=== PATIENT | female | born 1990 | race Caucasian/White ===

== ENCOUNTER 2023-04-17 10:23 | Emergency (ER) | payer OTHER, MEDICAID, SELFPAY ==
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
[2023-04-17 10:27] VITALS: BP 128/78; PULSE 96; RESP 17; TEMP 36.6; O2SAT 99; BMI 17.3
--- NOTE | 2023-04-17 11:05 | ED.WOUNDLAC ---
HPI - Wound/Laceration General Chief Complaint: Wound/Laceration Stated Complaint: cut on forehead Time Seen by Provider: 04/17/23 11:03 Source: patient, RN notes reviewed and old records reviewed Mode of arrival: ambulatory History of Present Illness HPI narrative: 33-year-old female with no significant past medical history presenting to the ED complaining of laceration to right forehead, headache, neck pain and lightheadedness/dizziness S/P car trunk door closing on head [employer]. Admits to +LOC after instant, did not fall all the way to ground was guided by . Denies nausea/vomiting, vision loss, injury to other area, weakness. Denies taking anticoagulation, tetanus unknown Related Data Allergies Allergy/AdvReac Type Severity Reaction Status Date / Time latex [Latex] Allergy Mild RASH Verified 04/17/23 10:25 latex Allergy Unknown swollen Uncoded 04/17/23 10:25 eyes Review of Systems Review of Systems: Constitutional: No Fever, No Chills, No Fatigue, No Malaise ENT/Mouth: No Ear Pain, No Nasal Congestion, No sore throat, No Rhinorrhea, No Swallowing Difficulty Eyes: No Eye Pain, No Swelling, No Redness, No Vision Changes Cardiovascular: No Chest Pain, No SOB, No Edema, No Palpitations Respiratory: No Cough, No Sputum, No Dyspnea Gastrointestinal: No Nausea, No Vomiting, No Diarrhea, No Constipation, No Abdominal pain Musculoskeletal: No joint pain, No Myalgias, No Joint Swelling Skin: + Skin Lesions, No rash Neuro: No Weakness, No Numbness, No Paresthesias, No Loss of Consciousness, +lightheaded/ Dizziness, + Headache Yes all other systems are reviewed and are negative Constitutional: Constitutional: Reports as per HPI Neurologic: Denies Abnormal speech present [facility] Past Medical History Attestation statement: The following information was validated with the patient. Source: old records reviewed Social History Social History Advance Directives: No Advance Directives Information Provided: No Physical Exam Vital Signs: Vital Signs: Last Vital Signs Temp 98 F 04/17/23 10:27 Pulse 96 04/17/23 10:27 Resp 17 04/17/23 10:27 BP 128/78 04/17/23 10:27 Pulse Ox 99 08/03/23 10:27 O2 Del Method Room Air 04/17/23 10:27 BMI result Body Mass Index 17.3 Const: General: cooperative, healthy appearing, no acute distress, alert and awake Orientation/consciousness: patient oriented x3 Limitations: no limitations HEENT: Other: + 3 cm linear laceration noted to right forehead. Bleeding controlled. No surrounding erythema, fluctuance or induration. No palpable step-off Head: Yes normal to inspection, No Jason's sign and No raccoon eyes Ears: hearing grossly normal bilaterally General nose exam: Normal external nose present Face and sinus: Yes normal facial exam Mouth: Normal oral and palatal mucosa present Eyes: General: appearance normal, both eyes and all related structures Pupils: Equal, round and reactive pupils present EOM: EOMs intact bilaterally Neck: Other: no midline cervical spinous, +right sided paraspinal ttp Neck: Yes normal visual inspection and Yes no meningeal signs Resp: Effort & Inspection: normal respiratory effort and no respiratory distress Auscultation: clear to auscultation bilaterally Cardio: Rate: regular rate Heart sounds: S1 normal heart sound present and S2 normal heart sound present GI: Inspection: Yes normal to inspection Palpation (GI): Soft to palpation, nontender, no guarding and not rigid : General: Yes no CVA tenderness Back/Spine/Pelvis: Other: No midline cervical/thoracic/lumbar spinous tenderness/step-off or deformity Back: no CVA tenderness Skin: Rashes: no rashes Wounds: no wounds Neuro: General: patient oriented x3, gait normal, tone normal, moves all extremities, no meningeal signs, no focal motor deficits and CN's II-XI intact bilaterally Cranial nerves: Yes CN's II-XII intact bilaterally, Yes Equal, round and reactive pupils present and Yes Bilaterally intact EOM present Cognition (Neuro): normal cognition Speech: No Abnormal speech present Gait exam (Neuro): Normal gait present Motor exam (neuro): 5/5 motor strength present throughout Extrem: General: Yes normal to inspection Course Course Course Narrative: CT head/brain wo IV con IMPRESSION: No acute intracranial pathology. CT cervical spine wo IV con IMPRESSION: No acute cervical spine fracture identified.? ? Cervical spondylosis C6-7 as described. ? Fleischner guidelines were followed. Results discussed with patient including worrisome signs and symptoms and strict return precautions, and when to return to the emergency department. They verbalized understanding and feel safe for discharge at this time. Medications Administered Discontinued Medications Generic Name Dose Route Start Last Admin Trade Name Kristian PRN Reason Stop Dose Admin Acetaminophen 650 mg 04/17/23 11:54 04/17/23 11:59 Acetaminophen 325 Mg Tablet PO 04/17/23 11:55 650 mg ONCE ONE Administration Diphtheria/Tetanus/Acell Pertussis 0.5 ml 04/17/23 11:10 04/17/23 11:18 Diphth,Pertus(Acell),Tet Adult 0.5 Ml Syringe IM 04/17/23 11:11 0.5 ml .ONCE ONE Administration Lidocaine HCl 5 ml 04/17/23 11:04 04/17/23 11:18 Lidocaine Hcl 1 % Mpf 5 Ml Vial SUBCUT 04/17/23 11:05 5 ml ONCE ONE Administration Medical Decision Making Medical Decision Making [facility] Narrative: 33-year-old female with no significant past medical history presenting to the ED complaining of laceration to right forehead, headache, neck pain and lightheadedness/dizziness S/P car trunk door closing on head [employer]. On exam vital signs stable, NAD, nontoxic appearing, 3 cm laceration noted to right forehead. No focal neuro deficits, ambulating with steady gait. Concern for laceration vs concussion. Rule out ICH/fractures. No evidence of infection. Plan: Head/C-spine CT, repair wound, update tetanus Please refer to course for remaining clinical decision making, interpretation of labs/imaging results, and discussions with consultants and/or family members. Differential Diagnosis Differential Diagnoses: The differential diagnosis associated with the presentation includes As above Admission/Observation Consideration of admission/observation: Escalation of care including admission/observation considered Lab Data [facility] Lab Attestation statement: I reviewed the patient's lab results. Radiology Impression Discussion of test interpretation with radiology: I have reviewed the radiologist's reading. External Record Review External record reviewed: Inpatient record, Office record, Outpatient record, Prior outpatient labs, Prior outpatient radiology, Primary care record and Outside ED record Tests considered The following testing was considered but not selected: As above Procedures Laceration Laceration 1: Site: face Side (If applicable): right Size (cm): 3 Description: linear Depth: simple, single layer Local Anesthetic: lidocaine 1% Amount of anesthesia used (mL): 4 Pre-repair: wound explored and irrigated extensively Skin layer closed with: nylon Size (cm): 6-0 Number of sutures: 5 Technique: simple, interrupted Discharge Plan Discharge Clinical Impression: Laceration, Head injury Patient Disposition: Home, Self-Care Instructions: Facial Laceration (ED) Additional Instructions: Her CT scans do not show any acute fractures or bleed Practice brain rest Take Tylenol and Motrin as needed Avoid bright lights, excessive screen time. If you have constant or worsening/persistent headache return to the ED Your wounds were repaired today in the emergency department. Keep dry and clean. You need to return to any emergency department, urgent care, or your PCPs office in 7-10 days for suture removal Apply bacitracin and or Neosporin daily Once sutures are removed apply anti scar cream like Mederma If area begins look infected, is red, there is drainage, streaking, or you have fever please return to the emergency department Referrals: Laura Connor MD [Primary Care Provider] - 5 days Interventions: ED Discharge Assessment Last Done: 04/17/23 15:12 Discharge Date/Time: 04/17/23 15:14
[2023-04-17] MEDS: Diphth,Pertus(ACell),Tet Adult 0.5 ML SYRINGE IM (11:18)
[2023-04-17] MEDS: Lidocaine HCl 1 % MPF 5 ML VIAL SUBCUT (11:18)
[2023-04-17] MEDS: Acetaminophen 325 MG TABLET 650 MG PO (11:59)
== END 2023-04-17 15:14 | disposition home or self-care (01) ==
PROVIDERS: Emergency Provider Student in an Organized Health Care Education/Training Program; PCP Internal Medicine
DX: S01.81XA Laceration without foreign body of other part of head, initial encounter (principal); S00.81XA Abrasion of other part of head, initial encounter; R51.9 Headache, unspecified; M54.2 Cervicalgia; W26.9XXA Contact with unspecified sharp object(s), initial encounter; Y93.9 Activity, unspecified; Y92.9 Unspecified place or not applicable; Y99.9 Unspecified external cause status; Z23 Encounter for immunization; Z79.899 Other long term (current) drug therapy
CPT/HCPCS: 12013; 70450; 72125; 90471; 90715; 99283; 99284

== ENCOUNTER 2023-06-20 12:18 | Outpatient (REF) | payer OTHER, SELFPAY | END 2023-06-20 12:19 | disposition home or self-care (01) | LOC: HO.HHCL 12:18 | PROVIDERS: Visit Provider Internal Medicine | DX: Z11.1 Encounter for screening for respiratory tuberculosis (principal); R63.6 Underweight; F32.A Depression, unspecified | CPT/HCPCS: 36415; 80053; 80061; 82306; 84443; 86481; 86704; 86706; 86709; 86803; 87340; 87389 ==

== ENCOUNTER 2023-09-24 13:56 | Outpatient (REF) | payer OTHER, SELFPAY ==
[2023-09-27 08:39] LABS: C. trachomatis RNA TMA NOT DETECTED (NOT DETECTED); N. gonorrhoeae RNA TMA NOT DETECTED (NOT DETECTED)
[2023-09-27 09:29] LABS: HPV mRNA E6/E7 rflx Not Detected (Not Detected)
[2023-09-27 09:59] LABS: Trichomonas (NAAT) NOT DETECTED (NOT DETECTED)
== END 2023-09-24 13:57 | disposition home or self-care (01) ==
LOC: HO.HHCLNP 13:56
PROVIDERS: Visit Provider Advanced Practice Midwife
DX: Z01.419 Encounter for gynecological examination (general) (routine) without abnormal findings (principal); Z20.2 Contact with and (suspected) exposure to infections with a predominantly sexual mode of transmission
CPT/HCPCS: 36415; 87491; 87591; 87624; 87661; 88142

== ENCOUNTER 2024-02-25 17:06 | Emergency (ER) | payer OTHER, SELFPAY ==
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
[2024-02-25 18:35] VITALS: BP 112/73; PULSE 84; RESP 16; TEMP 36.6; O2SAT 100; BMI 15.7
[2024-02-25 23:17] VITALS: BP 113/56; PULSE 70; RESP 16; TEMP 37.2; O2SAT 97
== END 2024-02-26 01:34 | disposition home or self-care (01) ==
PROVIDERS: Emergency Provider Internal Medicine; PCP Internal Medicine
DX: M54.50 Low back pain, unspecified (principal); M79.604 Pain in right leg; Z04.1 Encounter for examination and observation following transport accident
CPT/HCPCS: 72100; 73590; 99283

== ENCOUNTER 2024-05-04 12:36 | Outpatient (REF) | payer OTHER, SELFPAY ==
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
== END 2024-05-04 12:37 | disposition home or self-care (01) ==
LOC: HO.HHCX 12:36
PROVIDERS: Visit Provider Family Medicine
DX: M54.2 Cervicalgia (principal); M54.6 Pain in thoracic spine
CPT/HCPCS: 72040; 72070

== ENCOUNTER 2024-11-04 15:08 | Emergency (ER) | payer OTHER, SELFPAY ==
--- NOTE | ~2024-11-04 | XR_ITS ---
CLINICAL HISTORY: shortness of breath Chest Radiographs, 2 views Comparison: CR - CHEST 1 VIEW - 10/08/17 10:13 EST CR/MD - CHEST 2 VIEWS - 10/08/17 09:19 EST Findings: No cardiomegaly. Normal mediastinal contours. No pneumothorax. Prominent nipple shadows on the PA view. Artifact in the right suprahilar region on the PA view secondary to a hair tie. No pleural effusion. Normal upper abdomen. No acute fracture. Impression: No acute findings. This document has been electronically signed by: Nette Ramírez MD on 11/04/2024 16:48:47
[2024-11-04 15:50] VITALS: BP 128/76; PULSE 100; RESP 18; TEMP 37; O2SAT 99; BMI 14.3
--- NOTE | 2024-11-04 16:00 | ED_ITS ---
HPI - Asthma General Chief Complaint: Asthma Stated Complaint: asthma,sob,congested cough Time Seen by Provider: 11/05/24 01:06 Source: patient Mode of arrival: ambulatory Limitations: no limitations History of Present Illness ED Provider: Dr. Davonte Antonio HPI Narrative: 34-year-old female with a history of asthma who presents emergency department for evaluation of fever, chills, rhinorrhea, sore throat, cough, nausea, vomiting, diarrhea, abdominal pain x2 days. The patient states she was a cough which is productive of thick, white phlegm. She was also complaining of chest pain with coughing. Patient states she was had 1-2 episodes of vomiting. She was also had several episodes of diarrhea. Patient points to her epigastric area when asked to localize her abdominal pain. Patient states she has been using her albuterol inhaler and it has not been effective in relieving her shortness of breath or her cough. She states she had a fever as high as 102 degrees F at home. Related Data Previous Rx's ?Medication ?Instructions ?Recorded naproxen 500 mg tablet 500 mg PO BID PRN pain 7 days #14 02/26/24 tabs albuterol sulfate 90 mcg/actuation 2 puff inhalation Q4-6H PRN 11/05/24 aerosol inhaler shortness of breath or wheezing #8.5 grams azithromycin 250 mg tablet See Rx Instructions PO .COMPLEX #6 11/05/24 (Zithromax Z-Jignesh) tabs metoclopramide HCl 10 mg tablet 10 mg PO Q6H PRN nausea and 11/05/24 (Reglan) vomiting #14 tabs prednisone 20 mg tablet 60 mg (3 x 20 mg) PO DAILY 5 days 11/05/24 #15 tabs Allergies Allergy/AdvReac Type Severity Reaction Status Date / Time latex [Latex] Allergy Mild RASH Verified 11/04/24 15:53 latex Allergy Unknown swollen Uncoded 11/04/24 15:53 eyes Review of Systems Review of Systems: Yes all other systems are reviewed and are negative [facility] Past Medical History [facility] Narrative: Social history: She denies tobacco, alcohol and drug use Social History Social History Advance Directives: No Do you have a plan to hurt others: No Plan Physical Exam Vital Signs: Vital Signs: Last Vital Signs Temp 98.6 F 11/04/24 22:39 Pulse 116 H 11/04/24 22:39 Resp 16 11/04/24 22:39 BP 130/63 11/04/24 22:39 Pulse Ox 93 11/04/24 22:39 O2 Del Method Room Air 11/04/24 22:39 BMI result Body Mass Index 14.3 Vital signs revealed an elevated blood pressure of 130/63 and an elevated heart rate of 116 otherwise unremarkable. Exam: General: Awake, alert in no distress Head: Normocephalic, atraumatic EENT: PERRL, Lids normal, sclera normal, conjunctiva normal, nose normal , ears normal, throat without erythema or exudates Neck: Supple, no adenopathy Lung: breath sounds symmetric, wheezing at the end of expiration, no rales, no rhonchi Chest: symmetric movement, nontender Heart: regular rate and rhythm, normal S1, S2 no murmurs or rubs Abdomen: soft, mild epigastric tenderness, nondistended, normal bowel sounds Back: no vertebral tenderness, no CVAT Extremities: no deformities, moves all extremities symmetrically Neuro: Awake, alert, oriented, normal speech, cranial nerves intact, moves all extremities symmetrically Psych: Pleasant, cooperative Course Course Course Narrative: This is a rapid medical exam performed by Ada Servin NP: Additional HPI, ROS, PE not included below will be deferred to primary provider. Patient is a 34-year-old female presenting with complaint of shortness of breath since yesterday, feels somewhat better today. Using treatments at home. Plan: viral panel, cxr Medical Decision Making Medical Decision Making MDM Narrative: 34-year-old female with a history of asthma who presents emergency department for evaluation of fever, chills, rhinorrhea, sore throat, cough, nausea, vomiting, diarrhea, abdominal pain x2 days. The patient states she was a cough which is productive of thick, white phlegm. She was also complaining of chest pain with coughing. Patient states she was had 1-2 episodes of vomiting. She was also had several episodes of diarrhea. Patient points to her epigastric area when asked to localize her abdominal pain. Patient states she has been using her albuterol inhaler and it has not been effective in relieving her shortness of breath or her cough. She states she had a fever as high as 102 degrees F at home. Physical examination revealed elevated heart rate and elevated blood pressure otherwise unremarkable. Patient had epigastric tenderness, wheezing at the end of expiration otherwise exam was unremarkable Differential diagnosis: ?Includes but is not limited to pneumonia, bronchitis, asthma exacerbation, COVID-19, influenza, RSV, viral syndrome Course: 01:28 My interpretation patient's laboratory evaluation as follows: COVID-19 influenza and RSV were negative. Chest x-ray revealed no evidence for acute pneumonia. Patient was presentation is consistent with viral syndrome/bronchitis causing asthma exacerbation. I did discuss this with the patient. Patient was given prescriptions for Zithromax Z-Jignesh, prednisone 60 mg once a day for 5 days, changes Reglan 10 mg to every 6-8 hours as needed for nausea and vomiting and an albuterol inhaler 2 puffs every 4-6 hours as needed. She was given her 1st dose of Zithromax and prednisone here in the emergency department. She was given printed and verbal instructions and discharged home. Admission/Observation Consideration of admission/observation: Escalation of care including admission/observation considered (Yes) Lab Data MDM Lab Attestation statement: I reviewed the patient's lab results. Labs: Lab Results 11/04/24 Range/Units 16:05 Influenza Type A (PCR) NEGATIVE (Negative) Influenza Type B (PCR) NEGATIVE (Negative) RSV RNA Qual (PCR) NEGATIVE (Negative) SARS-CoV-2 RNA (RT-PCR) NEGATIVE (Negative) Independent Interpretation I performed an independent interpretation of an: Plain X-Ray Interpretation: My interpretation patient's chest x-ray is as follows: No acute disease Radiology Impression Discussion of test interpretation with radiology: I have reviewed the radiologist's reading. Radiologist Impression: Chest Radiographs, 2 views Comparison: CR - CHEST 1 VIEW - 10/08/17 10:13 EST CR/MN - CHEST 2 VIEWS - 10/08/17 09:19 EST Findings: No cardiomegaly. Normal mediastinal contours. No pneumothorax. Prominent nipple shadows on the PA view. Artifact in the right suprahilar region on the PA view secondary to a hair tie. No pleural effusion. Normal upper abdomen. No acute fracture. Impression: No acute findings. This document has been electronically signed by: Nette Ramírez MD on 11/04/2024 16:48:47 Dictated By: Nette Barajas MD Prescription Management I considered prescription management with: Antibiotic and Other (Anti- inflammatory steroids: Prednisone; antiemetic: Reglan; beta agonist: Albuterol inhaler) Zithromax Chronic Conditions Patient?s care impacted by: Other (Asthma) Discharge Plan Discharge Clinical Impression: Asthma exacerbation Qualifiers: Asthma severity: moderate Asthma persistence: persistent Qualified Code(s): J45.41 - Moderate persistent asthma with (acute) exacerbation Acute bronchitis Qualifiers: Bronchitis organism: unspecified organism Qualified Code(s): J20.9 - Acute bronchitis, unspecified Fever Qualifiers: Fever type: unspecified Qualified Code(s): R50.9 - Fever, unspecified Nausea & vomiting Qualifiers: Vomiting type: unspecified Qualified Code(s): R11.2 - Nausea with vomiting, unspecified Diarrhea Qualifiers: Diarrhea type: unspecified type Qualified Code(s): R19.7 - Diarrhea, unspecified Patient Disposition: Home, Self-Care Instructions: Acute Bronchitis (ED) Additional Instructions: Your chest x-ray revealed no pneumonia Your COVID 19, influenza and RSV tests were negative Your symptoms are concerning for bronchitis causing your cough and possibly a viral infection as the cause of your nausea, vomiting and diarrhea. Take Zithromax (azithromycin) Z-Jignesh as prescribed. Day 1 take 2 pills, each day after that take 1 pill for total of 5 days. This medication states in your system for 7-10 days and continues to work despite only taking it for 5 days. Take prednisone 20 mg pills, 3 pills once a day for 5 days. While you ?are taking prednisone, do not take any NSAIDs (Motrin, Advil, ibuprofen, Aleve, naproxen). Use the albuterol inhaler with the spacer, 2 puffs every 4-6 hours as needed for shortness of breath and wheezing. Take Tylenol 500 mg pills, 2 pills every 6 hours as needed for pain or fever. Take Reglan (bed metoclopramide) 10 mg pills, 1 pill every 6 hours as needed for nausea and vomiting Follow-up with your doctor in 2 days. Please return to the emergency department if your symptoms get worse or if you develop any symptoms that are concerning to you. Prescriptions: New albuterol sulfate 90 mcg/actuation HFA aerosol inhaler 2 puff inhalation Q4-6H PRN (Reason: shortness of breath or wheezing) Qty: 8.5 0RF azithromycin [Zithromax Z-Jignesh] 250 mg tablet See Rx Instructions .ROUTE .COMPLEX Qty: 6 0RF Rx Instructions: take 500 mg today (day 1), then 250 mg for 4 days (days 2-5) prednisone 20 mg tablet 60 mg PO DAILY 5 Days Qty: 15 0RF metoclopramide HCl [Reglan] 10 mg tablet 10 mg PO Q6H PRN (Reason: nausea and vomiting) Qty: 14 0RF No Action naproxen 500 mg tablet 500 mg PO BID PRN (Reason: pain) 7 Days Qty: 14 0RF Print Language: Panamanian
[2024-11-04 17:37] LABS: Influenza A PCR NEGATIVE (Negative); Influenza B PCR NEGATIVE (Negative); Resp Syncy Virus RNA Qual PCR NEGATIVE (Negative); SARS COV2 PCR INHOUSE NEGATIVE (Negative)
[2024-11-04 22:39] VITALS: BP 130/63; PULSE 116; RESP 16; TEMP 37; O2SAT 93
[2024-11-05] MEDS: predniSONE 20 MG TABLET 60 MG PO (02:03)
[2024-11-05] MEDS: Azithromycin 500 MG TABLET PO (02:03)
[2024-11-05 02:10] VITALS: BP 130/63; PULSE 116; RESP 16; TEMP 37; O2SAT 93
== END 2024-11-05 02:11 | disposition home or self-care (01) ==
PROVIDERS: Registered Nurse Emergency; Emergency Provider Emergency Medicine Emergency Medical Services; PCP Internal Medicine
DX: J45.41 Moderate persistent asthma with (acute) exacerbation (principal); J20.9 Acute bronchitis, unspecified; R11.2 Nausea with vomiting, unspecified; R50.9 Fever, unspecified; R06.02 Shortness of breath; R19.7 Diarrhea, unspecified; Z03.818 Encounter for observation for suspected exposure to other biological agents ruled out
CPT/HCPCS: 0241U; 71046; 99283; 99284

== ENCOUNTER → 2024-11-04 16:02 | Outpatient (BNV) | payer OTHER, SELFPAY | PROVIDERS: PCP Internal Medicine; Visit Provider Radiology Diagnostic Radiology | DX: R06.02 Shortness of breath (principal) | CPT/HCPCS: 71046 ==